=== PATIENT | female | born 1975 | race Caucasian/White ===

== ENCOUNTER → 2024-04-30 | Outpatient (CLI) | payer BC, SELFPAY ==
--- NOTE | 2024-04-30 11:30 | XR_ITS ---
Examination: Transvaginal ultrasound of the pelvis, complete Technique: Transvaginal sonographic images pelvis performed using machado scale imaging Exam date and time: April 30, 2024 11:16 AM INDICATIONS: Irregular menses 5 years FINDINGS: Uterus 7.2 x 4.4 x 5.1 cm No intrauterine gestation or uterine mass Endometrial stripe 0.8 cm Right ovary 2.3 x 1.6 x 2.1 cm arterial flow, solid right adnexal mass 10 x 7 x 8 mm Left ovary obscured by bowel gas IMPRESSION: No uterine mass or intrauterine gestation Isoechoic mass right ovary 10 x 7 x 8 mm, differential would include dermoid tumor, other ovarian neoplasm endometrioma, clinical correlation advised, recommend 3 month follow-up transabdominal pelvic sonography.
== END | disposition home or self-care (01) ==
PROVIDERS: PCP Family Medicine; Referring Provider Family Medicine; Visit Provider Family Medicine
DX: R19.09 Other intra-abdominal and pelvic swelling, mass and lump (principal)
CPT/HCPCS: 76830

== ENCOUNTER → 2024-05-15 | Outpatient (CLI) | payer BC, SELFPAY ==
--- NOTE | 2024-05-15 08:30 | XR_ITS ---
Examination: CT cervical spine without contrast 2-D sagittal reconstructions 2-D coronal reconstructions 3-D reconstructions. Exam date and time:May 15, 2024 0856 hours INDICATIONS: Neck pain 10 years CTDI:vol (mGy) 13.1 DLP: (mGycm) 312 Technique: Multiple 2 mm axial sections of the cervical spine have been obtained. The coronal and sagittal reconstructions have been obtained. 3-D reconstructions have been obtained. Low dose protocols were performed. One or more of the following dose reduction techniques were used; automated exposure control, adjustment of the mA and/or KV according to patient size, use of iterative reconstruction technique. Findings: Axial sections demonstrate intact base of the skull. C1 exhibit satisfactory relationship to the odontoid. No acute cervical vertebral body fracture seen. Alignment posterior spinous processes satisfactory. Impression: No acute cervical fracture. No focal cervical disc protrusion Given the patient's presentation, consider MRI cervical spine without contrast follow-up
[2024-05-15 10:13] LABS: HCG Qualitative,Urine Negative
== END | disposition home or self-care (01) ==
LOC: CCTX 08:30 → COPL 08:50
PROVIDERS: Referring Provider Family Medicine; Visit Provider Radiology Diagnostic Radiology
DX: M54.12 Radiculopathy, cervical region (principal); Z32.00 Encounter for pregnancy test, result unknown
CPT/HCPCS: 72125; 81025

== ENCOUNTER → 2024-06-18 | Outpatient (CLI) | payer BC, SELFPAY ==
--- NOTE | 2024-06-18 16:02 | XR_ITS ---
Examination: Lumbar spine, 5 views Technique: Lumbar spine AP, lateral, coned lateral lower lumbar spine, bilateral obliques 5 views Exam date and time: June [id number] hrs. Indications: Low back pain beginning several years ago. Findings: Moderate diffuse facet arthropathy No lumbar fracture Mild to moderate diffuse lumbar disc narrowing most prominent L4-L5 No spondylolisthesis Impression: Mild to moderate diffuse lumbar degenerative disc disease
--- NOTE | 2024-06-18 16:02 | XR_ITS ---
Examination: Sacroiliac joints 3 views Technique: AP, CARRERA SINHALA sacroiliac joints 3 views Exam date and time: June 18 2024 1500 hrs. Indications: Sacral pain several years. Findings: Mild bilateral sacroiliitis No fracture Symmetrical sacral foramina Impression: Mild bilateral sacroiliitis
== END | disposition home or self-care (01) ==
PROVIDERS: PCP Family Medicine; Referring Provider Nurse Practitioner Family; Visit Provider Nurse Practitioner Family
DX: M51.369 Other intervertebral disc degeneration, lumbar region without mention of lumbar back pain or lower extremity pain (principal); M46.1 Sacroiliitis, not elsewhere classified
CPT/HCPCS: 72110; 72202

== ENCOUNTER → 2024-06-19 | Outpatient (CLI) | payer BC, SELFPAY ==
--- NOTE | 2024-06-19 08:45 | XR_ITS ---
Examination: Screening digital mammography, bilateral Computer aided detection 3-D breast Tomosynthesis, bilateral Date and time of exam: 06/19/2024, 8:24 AM Comparisons: 1223 Indications: Screening Technique: Nonmagnified MLO, CC views of the breasts to been obtained, reconstructed from 3-D Tomosynthesis images. R2 computer aided detection program utilized for evaluation of suspicious masses and/or abnormal calcifications. 3-D Tomosynthesis images obtained. Technologist: Findings: The breasts are heterogeneously dense, which may obscure small masses. No evidence of abnormal masses or suspicious calcifications. Impression: BI-RADS category 1: Negative findings (within normal) Recommend 1 year follow-up mammogram
== END | disposition home or self-care (01) ==
LOC: CDIM 08:18
PROVIDERS: Referring Provider Family Medicine; Visit Provider Family Medicine
DX: Z12.31 Encounter for screening mammogram for malignant neoplasm of breast (principal); R92.313 Mammographic fatty tissue density, bilateral breasts
CPT/HCPCS: 77063; 77067

== ENCOUNTER → 2024-12-24 | Outpatient (CLI) | payer BC, SELFPAY ==
--- NOTE | 2024-12-24 | XR_ITS ---
Examination: Duplex scan of the lower extremity, unilateral right complete Date and time of exam: December 24, 2024 0719 hrs. Indications: Right leg pain beginning one year ago Technique: Duplex scan of the extremity veins using B-mode/grayscale imaging and Doppler spectral analysis and color flow Attention is directed to internal echogenicity, compression and augmentation involving these veins, color flow assessment, spectral analysis Findings: Major deep venous structures in the extremity demonstrate normal course and caliber. There is no evidence of deep vein thrombosis. Normal color flow and spectral analysis Impression: Negative for DVT..
== END | disposition home or self-care (01) ==
PROVIDERS: PCP Family Medicine; Referring Provider Student in an Organized Health Care Education/Training Program; Visit Provider Student in an Organized Health Care Education/Training Program
DX: M79.661 Pain in right lower leg (principal)
CPT/HCPCS: 93971

== ENCOUNTER → 2024-12-24 | Outpatient (CLI) | payer BC, SELFPAY ==
--- NOTE | 2024-12-24 13:15 | XR_ITS ---
EXAMINATION: Cervical spine, 5 views Technique: Cervical spine AP, AP odontoid, lateral, bilateral obliques, 5 views Exam date and time: December 24, 2024 1324 hours INDICATIONS: Right-sided neck pain beginning one month ago. FINDINGS: Adequate alignment cervical vertebral bodies No cervical fracture Moderate disc narrowing C5-C6 No significant neural foraminal stenosis IMPRESSION: Moderate degenerative disc disease C5-C6
== END | disposition home or self-care (01) ==
LOC: CDIM 12:36
PROVIDERS: PCP Student in an Organized Health Care Education/Training Program; Referring Provider Student in an Organized Health Care Education/Training Program; Visit Provider Student in an Organized Health Care Education/Training Program
DX: M50.322 Other cervical disc degeneration at C5-C6 level (principal)
CPT/HCPCS: 72050